=== PATIENT | female | born 1945 | race Caucasian/White ===

== ENCOUNTER 2016-08-31 11:42 | Inpatient (IN) | payer OTHER ==
[~2016-08-31] VITALS: Ht 160 cm; Wt 79.2 kg
[~2016-08-31 11:42] MED LIST: ACTOS45 MG PO; ADULT LOW DOSE81 MG PO; AMARYL1 MG PO; ATARAX,VISTARIL25 M1 PO; COUMADIN,JANTO2.5 MG PO; ENDOCET 5-3251 EACH PO; Elavil PO; Feosol PO; HYDROCODON-ACE1 EAC7 PO; JANUVIA100 MG PO; METFORMIN HCL1000 MG PO; NORVASC5 MG PO; Percocet 5/325,Endoc PO; TOPROL XL50 MG PO; ZESTRIL,PRINIVI20 MG PO
[2016-08-31 12:32] LABS: EOSINOPHIL (%) 0.9 % (0-5); EOSINOPHIL COUNT 0.1 K/uL (0-0.3); HEMATOCRIT 33.7 % (36.0-46.0); IMMATURE GRANULOCYTE (%) 0.6 % (0.0-0.7); INSTRUMENT ABS NEUTROPHIL CT 4.8 K/uL; LYMPHOCYTE COUNT 1.1 K/uL (1.0-2.8); MCH 31.6 PG (29.0-34.0); MCHC 32.3 G/DL (30.0-36.0); MCV 97.7 FL (83-99); MEAN PLAT.VOLUME 9.9 uM^3 (9.5-12.4); MONOCYTE (%) 7.4 % (3-12); MONOCYTE COUNT 0.5 K/uL (0-0.8); NEUTROPHIL (%) 74.4 % (45-76); NEUTROPHIL COUNT 4.8 K/uL (1.8-6.4); PLATELET COUNT 176 K/uL (156-360); RBC DIS.WIDTH-CV 12.4 % (11.8-14.6); RBC DIS.WIDTH-SD 44.2 % (39-53); RED BLOOD COUNT 3.45 M/uL (3.80-5.20); WHITE BLOOD COUNT 6.4 K/uL (4.1-10.2)
[2016-08-31 12:44] LABS: CHLORIDE 99 mEq/L (99-109); POTASSIUM 4.3 mEq/L (3.7-5.4); SODIUM 137 mEq/L (136-147)
[2016-08-31 12:46] LABS: GLUCOSE 175 mg/dL (70-99)
[2016-08-31 12:47] LABS: ANION GAP 9 MEQ/L (2-14)
[2016-08-31 12:50] LABS: GFR ESTIMATE (CALCULATED) > 59 mL/min/
[2016-08-31 12:51] LABS: UREA NITROGEN (BUN) 23 mg/dL (9-23)
[2016-08-31 12:56] LABS: TROP-I INTERPRETATION NEGATIVE; TROPONIN-I < 0.01 ng/mL (0.0-0.30)
[2016-08-31 17:55] LABS: INTER. NORMALIZED RATIO 1.1; PROTHROMBIN TIME 11.4 (9.2-11.2); PTT 29.8 (25-32)
[2016-08-31] MEDS ORDERED: NORVASC5 MG PO (17:56)
[2016-08-31] MEDS ORDERED: ACTOS30 MG PO (17:56)
[2016-08-31] MEDS ORDERED: ZESTRIL20 MG PO (17:57)
[2016-08-31] MEDS ORDERED: ELAVIL25 MG PO (17:58)
[2016-08-31] MEDS ORDERED: LOPRESSOR50 MG PO (17:58)
[2016-08-31] MEDS ORDERED: MOBIC15 MG PO (18:00)
[2016-08-31] MEDS ORDERED: LO-DOSE ASPIRIN81 M1 PO (18:01)
[2016-08-31] MEDS ORDERED: TRULICITY0.75 MG/0. SC (18:02)
[2016-08-31] MEDS ORDERED: PERCOCET 7.51 TABLET PO (18:03)
[2016-08-31 20:35] VITALS: BP 146/69
[2016-08-31 21:58] LABS: POINT-OF-CARE METER ID UU14188625
[2016-09-01 00:02] VITALS: BP 153/75
[2016-09-01 01:07] LABS: INTER. NORMALIZED RATIO 1.1; PROTHROMBIN TIME 11.6 (9.2-11.2)
[2016-09-01 01:08] LABS: PTT 81.1 (25-32)
[2016-09-01 04:00] VITALS: BP 143/73
[2016-09-01 07:26] VITALS: BP 147/67
[2016-09-01 08:58] LABS: HEMATOCRIT 33.4 % (36.0-46.0); MCH 31.1 PG (29.0-34.0); MCV 97.1 FL (83-99); MEAN PLAT.VOLUME 10.9 uM^3 (9.5-12.4); PLATELET COUNT 198 K/uL (156-360); RBC DIS.WIDTH-CV 12.4 % (11.8-14.6); RBC DIS.WIDTH-SD 43.9 % (39-53); RED BLOOD COUNT 3.44 M/uL (3.80-5.20); WHITE BLOOD COUNT 6.4 K/uL (4.1-10.2)
[2016-09-01 09:06] LABS: CHLORIDE 100 mEq/L (99-109); POTASSIUM 4.3 mEq/L (3.7-5.4); SODIUM 138 mEq/L (136-147)
[2016-09-01 09:09] LABS: GLUCOSE 138 mg/dL (70-99)
[2016-09-01 09:10] LABS: ANION GAP 9 MEQ/L (2-14)
[2016-09-01 09:11] LABS: TOTAL BILIRUBIN 0.4 mg/dL (0.0-1.0)
[2016-09-01 09:12] LABS: ALKALINE PHOSPHATASE 57 IU/L (3-129)
[2016-09-01 09:13] LABS: GFR ESTIMATE (CALCULATED) > 59 mL/min/
[2016-09-01 09:14] LABS: UREA NITROGEN (BUN) 14 mg/dL (9-23)
[2016-09-01 15:27] VITALS: BP 146/86
[2016-09-01 20:00] VITALS: BP 148/69
[2016-09-01 23:47] VITALS: BP 133/72
[2016-09-02 03:44] VITALS: BP 134/66
[2016-09-02 05:32] LABS: HEMATOCRIT 33.1 % (36.0-46.0); MCH 32.5 PG (29.0-34.0); MCHC 33.2 G/DL (30.0-36.0); MCV 97.9 FL (83-99); MEAN PLAT.VOLUME 10.4 uM^3 (9.5-12.4); PLATELET COUNT 208 K/uL (156-360); RBC DIS.WIDTH-CV 12.2 % (11.8-14.6); RBC DIS.WIDTH-SD 43.9 % (39-53); RED BLOOD COUNT 3.38 M/uL (3.80-5.20)
[2016-09-02 05:54] LABS: ANION GAP 9 MEQ/L (2-14); CHLORIDE 97 MEQ/L (99-109); GFR ESTIMATE (CALCULATED) > 59 mL/min/; GLUCOSE 140 mg/dL (70-99); SAMPLE HEMOLYSIS CHECK 0; SAMPLE ICTERIC CHECK 0; SAMPLE LIPEMIA CHECK 0; SODIUM 139 MEQ/L (136-147); UREA NITROGEN (BUN) 10 mg/dL (9-23)
[2016-09-02 07:30] VITALS: BP 120/84
[2016-09-02 11:59] VITALS: BP 124/59
[2016-09-02 15:09] VITALS: BP 151/86
[2016-09-02 17:18] LABS: POINT-OF-CARE METER ID UU14174225
[2016-09-02 19:40] VITALS: BP 133/63
[2016-09-03 00:17] VITALS: BP 117/58
[2016-09-03 04:12] VITALS: BP 112/55
[2016-09-03 05:19] LABS: EOSINOPHIL (%) 4.7 % (0-5); EOSINOPHIL COUNT 0.3 K/uL (0-0.3); HEMATOCRIT 33.5 % (36.0-46.0); IMMATURE GRANULOCYTE (%) 0.3 % (0.0-0.7); INSTRUMENT ABS NEUTROPHIL CT 3.2 K/uL; LYMPHOCYTE COUNT 1.9 K/uL (1.0-2.8); MCHC 32.8 G/DL (30.0-36.0); MCV 97.4 FL (83-99); MEAN PLAT.VOLUME 9.9 uM^3 (9.5-12.4); MONOCYTE (%) 10.5 % (3-12); MONOCYTE COUNT 0.6 K/uL (0-0.8); NEUTROPHIL (%) 52.8 % (45-76); NEUTROPHIL COUNT 3.2 K/uL (1.8-6.4); PLATELET COUNT 223 K/uL (156-360); RBC DIS.WIDTH-CV 12.3 % (11.8-14.6); RBC DIS.WIDTH-SD 43.8 % (39-53); RED BLOOD COUNT 3.44 M/uL (3.80-5.20)
[2016-09-03 05:51] LABS: ANION GAP 9 MEQ/L (2-14); CHLORIDE 98 MEQ/L (99-109); GFR ESTIMATE (CALCULATED) > 59 mL/min/; GLUCOSE 134 mg/dL (70-99); POTASSIUM 4.2 MEQ/L (3.7-5.4); SAMPLE HEMOLYSIS CHECK 0; SAMPLE ICTERIC CHECK 0; SAMPLE LIPEMIA CHECK 0; SODIUM 139 MEQ/L (136-147); UREA NITROGEN (BUN) 16 mg/dL (9-23)
[2016-09-03 08:18] VITALS: BP 137/67
[2016-09-03] MEDS ORDERED: AUGMENTIN875 MG PO (10:01)
[2016-09-03] MEDS ORDERED: ELIQUIS5 MG PO (10:01)
== END 2016-09-03 11:55 | disposition home or self-care (01) | DRG 175 ==
LOC: EME 11:42 → 5SOUTH 19:04 → EDOF 19:04 → 5SOUTH 20:23
PROVIDERS: Emergency Medicine; Hospitalist
DX: I26.99 Other pulmonary embolism without acute cor pulmonale (principal); J18.9 Pneumonia, unspecified organism; D62 Acute posthemorrhagic anemia; J98.11 Atelectasis; S52.591D Other fractures of lower end of right radius, subsequent encounter for closed fracture with routine healing; S52.614D Nondisplaced fracture of right ulna styloid process, subsequent encounter for closed fracture with routine healing; E11.8 Type 2 diabetes mellitus with unspecified complications; R09.02 Hypoxemia; I83.90 Asymptomatic varicose veins of unspecified lower extremity; W19.XXXD Unspecified fall, subsequent encounter; I10 Essential (primary) hypertension; J98.4 Other disorders of lung; Z79.84 Long term (current) use of oral hypoglycemic drugs; Z79.4 Long term (current) use of insulin; Y92.9 Unspecified place or not applicable
CPT/HCPCS: 36415; 71010; 71260; 80048; 80053; 82948; 83036; 84484; 85025; 85027; 85610; 85730; 93970; 94010; 94799; 99281; 99285; J0456; J1815; J2543; J7050

== ENCOUNTER 2017-06-06 18:34 | Inpatient (IN) | payer OTHER ==
[~2017-06-06] VITALS: Ht 157.5 cm; Wt 75.2 kg
[~2017-06-06 18:34] MED LIST changes: +ACTOS30 MG PO; +AUGMENTIN875 MG PO; +ELAVIL25 MG PO; +ELIQUIS5 MG PO; +LO-DOSE ASPIRIN81 M1 PO; +LOPRESSOR50 MG PO; +MOBIC15 MG PO; +PERCOCET 7.51 TABLET PO; +TRULICITY0.75 MG/0. SC; +ZESTRIL20 MG PO
[2017-06-06 20:19] LABS: HEMATOCRIT 37.3 % (36.0-46.0); HEMOGLOBIN 12.3 G/DL (11.9-15.5); MCH 32.3 PG (29.0-34.0); MCV 97.9 FL (83-99); PLATELET COUNT 186 K/uL (156-360); RBC DIS.WIDTH-CV 12.6 % (11.8-14.6); RBC DIS.WIDTH-SD 45.3 % (39-53); RED BLOOD COUNT 3.81 M/uL (3.80-5.20)
[2017-06-06 20:28] LABS: CHLORIDE 104 mEq/L (99-109); INTER. NORMALIZED RATIO 1.3; POTASSIUM 5.4 mEq/L (3.7-5.4); SODIUM 143 mEq/L (136-147)
[2017-06-06 20:30] LABS: GLUCOSE 162 mg/dL (70-99)
[2017-06-06 20:33] LABS: CREATININE 1.1 mg/dL (0.6-1.3); GFR ESTIMATE (CALCULATED) 52 mL/min/
[2017-06-06 20:34] LABS: UREA NITROGEN (BUN) 29 mg/dL (9-23)
[2017-06-06] MEDS ORDERED: ONE DAILY1 EAC3 PO (22:10)
[2017-06-06] MEDS ORDERED: BENGAY ULTRA S113 GM TP (22:10)
[2017-06-06 23:22] LABS: CREATINE KINASE 88 IU/L (1-294)
[2017-06-06 23:27] LABS: TROP-I INTERPRETATION NEGATIVE; TROPONIN-I < 0.01 ng/mL (0.0-0.30)
[2017-06-06 23:30] VITALS: BP 127/66
[2017-06-06 23:34] VITALS: BP 143/70
[2017-06-07 03:13] VITALS: BP 115/56
[2017-06-07 05:24] LABS: HEMATOCRIT 34.9 % (36.0-46.0); MCHC 31.5 G/DL (30.0-36.0); MCV 98.3 FL (83-99); PLATELET COUNT 188 K/uL (156-360); RBC DIS.WIDTH-CV 12.5 % (11.8-14.6); RBC DIS.WIDTH-SD 45.4 % (39-53); RED BLOOD COUNT 3.55 M/uL (3.80-5.20); WHITE BLOOD COUNT 9.2 K/uL (4.1-10.2)
[2017-06-07 05:45] LABS: CHLORIDE 103 MEQ/L (99-109); GFR ESTIMATE (CALCULATED) 58 mL/min/; GLUCOSE 164 mg/dL (70-99); SODIUM 140 MEQ/L (136-147); UREA NITROGEN (BUN) 26 mg/dL (9-23)
[2017-06-07 08:17] VITALS: BP 123/61
[2017-06-07 11:45] VITALS: BP 130/62
[2017-06-07 15:57] VITALS: BP 133/64
[2017-06-07 19:49] VITALS: BP 137/70
[2017-06-07 23:29] VITALS: BP 138/59
[2017-06-08 05:25] VITALS: BP 136/79
[2017-06-08 05:52] LABS: HEMATOCRIT 35.2 % (36.0-46.0); HEMOGLOBIN 11.3 G/DL (11.9-15.5); MCH 31.6 PG (29.0-34.0); MCHC 32.1 G/DL (30.0-36.0); MCV 98.3 FL (83-99); PLATELET COUNT 153 K/uL (156-360); RBC DIS.WIDTH-CV 12.5 % (11.8-14.6); RBC DIS.WIDTH-SD 45.1 % (39-53); RED BLOOD COUNT 3.58 M/uL (3.80-5.20); WHITE BLOOD COUNT 7.7 K/uL (4.1-10.2)
[2017-06-08 06:20] LABS: CHLORIDE 96 MEQ/L (99-109); CREATININE 0.7 MG/DL (0.6-1.3); GFR ESTIMATE (CALCULATED) > 59 mL/min/; GLUCOSE 160 mg/dL (70-99); POTASSIUM 4.6 MEQ/L (3.7-5.4); SODIUM 136 MEQ/L (136-147); UREA NITROGEN (BUN) 15 mg/dL (9-23)
[2017-06-08 08:07] VITALS: BP 186/90
[2017-06-08 11:17] VITALS: BP 144/71
[2017-06-08 15:42] VITALS: BP 136/74
[2017-06-08 16:45] LABS: APPEARANCE CLEAR ((CLEAR)); BILIRUBIN NEGATIVE; BLOOD SMALL; COLOR YELLOW ((YELLOW)); GLUCOSE (STRIP) NEGATIVE; KETONES 5; LEUKOCYTES NEGATIVE; NITRITE NEGATIVE; PROTEIN (STRIP) NEGATIVE; SPECIFIC GRAVITY 1.009 (1.000-1.030); UROBILINOGEN 0.2 MG/DL (0.2-1.0)
[2017-06-08 17:00] LABS: BACTERIA NONE SEEN /HPF; EPITHELIAL CELLS RARE /HPF; MUCUS TRACE /LPF; UCUL ADDED? NO; WHITE BLOOD CELLS 0-5 /HPF (0-5)
[2017-06-08 20:49] VITALS: BP 152/67
[2017-06-09] VITALS (7 sets, daily range): BP systolic 87–135; BP diastolic 52–75
[2017-06-09 06:01] LABS: HEMATOCRIT 31.4 % (36.0-46.0); HEMOGLOBIN 10.1 G/DL (11.9-15.5); MCV 97.8 FL (83-99)
[2017-06-10 03:25] VITALS: BP 123/60
[2017-06-10 07:59] VITALS: BP 117/56
[2017-06-10 11:56] VITALS: BP 110/57
[2017-06-10] MEDS ORDERED: ENDOCET 5-3251 EACH PO (14:06)
== END 2017-06-10 16:00 | disposition home health service (06) | DRG 481 ==
LOC: EME 18:34 → EDOF 22:18 → 3EAST 22:18 → ENRESERV 22:19 → 3EAST 23:18
PROVIDERS: Emergency Medicine; Family Medicine; Hospitalist; Orthopaedic Surgery
PROC: 0QS734Z Reposition Left Upper Femur with Internal Fixation Device, Percutaneous Approach (ICD-10-PCS; principal; 2017-06-08)
DX: S72.142A Displaced intertrochanteric fracture of left femur, initial encounter for closed fracture (principal); J98.11 Atelectasis; E11.9 Type 2 diabetes mellitus without complications; I10 Essential (primary) hypertension; Z86.711 Personal history of pulmonary embolism; Z96.652 Presence of left artificial knee joint; W01.0XXA Fall on same level from slipping, tripping and stumbling without subsequent striking against object, initial encounter; R00.0 Tachycardia, unspecified
CPT/HCPCS: 70450; 71045; 71275; 73501; 73502; 73552; 74176; 76000; 80048; 81003; 82550; 82948; 84484; 85014; 85018; 85027; 85610; 85730; 93005; 99281; 99284; C1713; J0330; J0690; J1644; J1815; J2270; J2405; J3010; J7030; J7120

== ENCOUNTER 2017-08-11 12:08 | Inpatient (IN) | payer OTHER ==
[~2017-08-11] VITALS: Ht 162.6 cm; Wt 71.2 kg
[~2017-08-11 12:08] MED LIST changes: +BENGAY ULTRA S113 GM TP; +ONE DAILY1 EAC3 PO
[2017-08-11 12:57] LABS: BASOPHIL (%) 0.2 % (0-1); EOSINOPHIL (%) 0.6 % (0-5); EOSINOPHIL COUNT 0.1 K/uL (0-0.3); HEMATOCRIT 31.1 % (36.0-46.0); HEMOGLOBIN 10.1 G/DL (11.9-15.5); IMMATURE GRANULOCYTE (%) 0.4 % (0.0-0.7); LYMPHOCYTE (%) 19.5 % (15-42); MCH 31.1 PG (29.0-34.0); MCHC 32.5 G/DL (30.0-36.0); MCV 95.7 FL (83-99); MONOCYTE (%) 7.4 % (3-12); MONOCYTE COUNT 0.8 K/uL (0-0.8); NEUTROPHIL (%) 71.9 % (45-76); NEUTROPHIL COUNT 7.3 K/uL (1.8-6.4); PLATELET COUNT 269 K/uL (156-360); RBC DIS.WIDTH-CV 13.2 % (11.8-14.6); RED BLOOD COUNT 3.25 M/uL (3.80-5.20); WHITE BLOOD COUNT 10.1 K/uL (4.1-10.2)
[2017-08-11 13:01] LABS: INTER. NORMALIZED RATIO 1.3
[2017-08-11 13:03] LABS: PTT 31.8 SEC (25-37)
[2017-08-11 13:04] LABS: CHLORIDE 98 mEq/L (99-109); POTASSIUM 4.6 mEq/L (3.7-5.4); SODIUM 140 mEq/L (136-147)
[2017-08-11 13:06] LABS: GLUCOSE 147 mg/dL (70-99)
[2017-08-11 13:10] LABS: CREATININE 0.9 mg/dL (0.6-1.3); GFR ESTIMATE (CALCULATED) > 59 mL/min/
[2017-08-11 13:11] LABS: UREA NITROGEN (BUN) 22 mg/dL (9-23)
[2017-08-11] MEDS ORDERED: ELIQUIS5 MG PO (13:45)
[2017-08-11] MEDS ORDERED: PERCOCET 7.51 TABLET PO (13:47)
[2017-08-11 16:19] VITALS: BP 124/62
[2017-08-11 16:45] LABS: BASOPHIL (%) 0.2 % (0-1); EOSINOPHIL (%) 0.2 % (0-5); HEMATOCRIT 28.5 % (36.0-46.0); HEMOGLOBIN 9.1 G/DL (11.9-15.5); IMMATURE GRANULOCYTE (%) 0.2 % (0.0-0.7); LYMPHOCYTE COUNT 1.8 K/uL (1.0-2.8); MCH 30.4 PG (29.0-34.0); MCHC 31.9 G/DL (30.0-36.0); MCV 95.3 FL (83-99); MONOCYTE (%) 7.4 % (3-12); MONOCYTE COUNT 0.7 K/uL (0-0.8); NEUTROPHIL COUNT 6.4 K/uL (1.8-6.4); PLATELET COUNT 263 K/uL (156-360); RBC DIS.WIDTH-CV 13.2 % (11.8-14.6); RBC DIS.WIDTH-SD 45.9 % (39-53); RED BLOOD COUNT 2.99 M/uL (3.80-5.20); WHITE BLOOD COUNT 8.8 K/uL (4.1-10.2)
[2017-08-11 17:13] LABS: CHLORIDE 98 MEQ/L (99-109); CREATININE 0.8 MG/DL (0.6-1.3); GFR ESTIMATE (CALCULATED) > 59 mL/min/; GLUCOSE 125 mg/dL (70-99); POTASSIUM 4.5 MEQ/L (3.7-5.4); SODIUM 137 MEQ/L (136-147); UREA NITROGEN (BUN) 22 mg/dL (9-23)
[2017-08-11 19:05] VITALS: BP 114/56
[2017-08-11 20:44] LABS: HEMATOCRIT 26.3 % (36.0-46.0); HEMOGLOBIN 8.5 G/DL (11.9-15.5); MCV 93.9 FL (83-99)
[2017-08-12 00:32] VITALS: BP 114/54
[2017-08-12 04:56] VITALS: BP 115/54
[2017-08-12 06:15] LABS: BASOPHIL (%) 0.3 % (0-1); EOSINOPHIL (%) 1.9 % (0-5); EOSINOPHIL COUNT 0.1 K/uL (0-0.3); HEMATOCRIT 27.1 % (36.0-46.0); HEMOGLOBIN 8.8 G/DL (11.9-15.5); IMMATURE GRANULOCYTE (%) 0.3 % (0.0-0.7); LYMPHOCYTE (%) 24.5 % (15-42); LYMPHOCYTE COUNT 1.4 K/uL (1.0-2.8); MCH 31.2 PG (29.0-34.0); MCHC 32.5 G/DL (30.0-36.0); MCV 96.1 FL (83-99); MONOCYTE (%) 9.7 % (3-12); MONOCYTE COUNT 0.6 K/uL (0-0.8); NEUTROPHIL (%) 63.3 % (45-76); NEUTROPHIL COUNT 3.7 K/uL (1.8-6.4); PLATELET COUNT 241 K/uL (156-360); RBC DIS.WIDTH-CV 13.2 % (11.8-14.6); RBC DIS.WIDTH-SD 46.5 % (39-53); RED BLOOD COUNT 2.82 M/uL (3.80-5.20); WHITE BLOOD COUNT 5.9 K/uL (4.1-10.2)
[2017-08-12 06:38] LABS: ALBUMIN 3.3 G/DL (3.2-4.8); ALKALINE PHOSPHATASE 64 IU/L (3-129); ALT (GPT) 6 IU/L (3-49); AST (GOT) 13 IU/L (2-34); CHLORIDE 99 MEQ/L (99-109); CREATININE 0.7 MG/DL (0.6-1.3); GFR ESTIMATE (CALCULATED) > 59 mL/min/; GLUCOSE 165 mg/dL (70-99); POTASSIUM 4.3 MEQ/L (3.7-5.4); SODIUM 138 MEQ/L (136-147); TOTAL BILIRUBIN 0.4 MG/DL (0.0-1.0); TOTAL PROTEIN 5.9 G/DL (6.4-8.3); UREA NITROGEN (BUN) 17 mg/dL (9-23)
[2017-08-12 08:00] VITALS: BP 127/62
[2017-08-12 12:00] VITALS: BP 108/54
[2017-08-12 14:47] LABS: HEMOGLOBIN 8.1 G/DL (11.9-15.5); MCV 96.7 FL (83-99)
[2017-08-12 16:00] VITALS: BP 116/55
[2017-08-12 20:24] VITALS: BP 115/56
[2017-08-13] VITALS (12 sets, daily range): BP systolic 101–123; BP diastolic 50–67
[2017-08-13 05:57] LABS: HEMATOCRIT 22.7 % (36.0-46.0)
[2017-08-14 06:25] LABS: BASOPHIL (%) 0.3 % (0-1); EOSINOPHIL (%) 3.1 % (0-5); EOSINOPHIL COUNT 0.2 K/uL (0-0.3); IMMATURE GRANULOCYTE (%) 0.5 % (0.0-0.7); LYMPHOCYTE (%) 28.7 % (15-42); LYMPHOCYTE COUNT 1.8 K/uL (1.0-2.8); MCH 30.4 PG (29.0-34.0); MCHC 31.9 G/DL (30.0-36.0); MCV 95.1 FL (83-99); MONOCYTE (%) 8.1 % (3-12); MONOCYTE COUNT 0.5 K/uL (0-0.8); NEUTROPHIL (%) 59.3 % (45-76); NEUTROPHIL COUNT 3.8 K/uL (1.8-6.4); PLATELET COUNT 247 K/uL (156-360); RBC DIS.WIDTH-CV 14.4 % (11.8-14.6); RBC DIS.WIDTH-SD 50.3 % (39-53); RED BLOOD COUNT 3.26 M/uL (3.80-5.20); WHITE BLOOD COUNT 6.4 K/uL (4.1-10.2)
[2017-08-14 06:57] LABS: HEMOGLOBIN 9.9 G/DL (11.9-15.5)
[2017-08-14 07:57] VITALS: BP 114/58
[2017-08-14 15:48] VITALS: BP 115/56
[2017-08-14 23:20] VITALS: BP 119/54
[2017-08-15 08:01] VITALS: BP 111/58
[2017-08-15 09:48] LABS: HEMATOCRIT 27.1 % (36.0-46.0); HEMOGLOBIN 8.6 G/DL (11.9-15.5); MCV 95.4 FL (83-99)
[2017-08-15 12:55] LABS: HEMATOCRIT 26.3 % (36.0-46.0); HEMOGLOBIN 8.5 G/DL (11.9-15.5); MCV 95.6 FL (83-99)
[2017-08-15 16:12] VITALS: BP 110/56
[2017-08-15 23:51] VITALS: BP 134/66
[2017-08-16 07:51] VITALS: BP 118/56
[2017-08-16 15:42] VITALS: BP 87/49
[2017-08-16 16:44] LABS: HEMATOCRIT 25.2 % (36.0-46.0); HEMOGLOBIN 8.1 G/DL (11.9-15.5); MCV 96.2 FL (83-99)
[2017-08-16 18:22] VITALS: BP 120/62
[2017-08-16 20:44] VITALS: BP 117/56
[2017-08-16 21:05] VITALS: BP 112/53
[2017-08-16 22:15] VITALS: BP 117/53
[2017-08-17 00:11] VITALS: BP 129/60
[2017-08-17 07:35] VITALS: BP 121/59
[2017-08-17 08:26] LABS: HEMATOCRIT 29.6 % (36.0-46.0); HEMOGLOBIN 9.4 G/DL (11.9-15.5); MCV 94.6 FL (83-99)
[2017-08-17] MEDS ORDERED: OXYCODONE HCL5 MG PO (11:01)
== END 2017-08-17 14:19 | disposition home health service (06) | DRG 920 ==
LOC: EME 12:08 → ENRESERV 12:53 → 3EAST 13:00 → EDOF 13:00 → ENRESERV 13:22 → EDOF 14:39 → ENRESERV 14:39 → 3EAST 16:09
PROVIDERS: Emergency Medicine; Hospitalist; Orthopaedic Surgery; Physician Assistant Surgical
DX: L76.32 Postprocedural hematoma of skin and subcutaneous tissue following other procedure (principal); D62 Acute posthemorrhagic anemia; I95.9 Hypotension, unspecified; Y83.8 Other surgical procedures as the cause of abnormal reaction of the patient, or of later complication, without mention of misadventure at the time of the procedure; S72.142D Displaced intertrochanteric fracture of left femur, subsequent encounter for closed fracture with routine healing; I10 Essential (primary) hypertension; E11.9 Type 2 diabetes mellitus without complications; Z79.01 Long term (current) use of anticoagulants; Z79.84 Long term (current) use of oral hypoglycemic drugs; Z86.711 Personal history of pulmonary embolism; Z90.710 Acquired absence of both cervix and uterus
CPT/HCPCS: 80048; 80048 91; 80053; 82948; 85014; 85018; 85025; 85025 91; 85610; 85730; 86850; 86900; 86901; 86920; 93005; 93306; 97530 GP; 99281; 99285; J0131; J0330; J0690; J1170; J1815; J2250; J3010; J7030; J7040; P9016